=== PATIENT | female | born 1935 | race Caucasian/White ===

== ENCOUNTER 2019-10-10 09:21 | Emergency (ER) | payer OTHER ==
[~2019-10-10] VITALS: Ht 165.1 cm; Wt 72.6 kg
[~2019-10-10 09:21] MED LIST: ARICEPT10 M1 PO; CITALOPRAM40 MG PO; NYSTATIN OINTME30 GM T; NYSTATIN1 EAC3 MC; RISPERDAL0.5 MG PO; TRAZODONE50 MG PO; VITAMIN D32000 UNIT PO
[2019-10-10 10:07] LABS: BASO % 0.4 % (0.0-1.0); EOS # 0.2 10*3/uL (0.0-0.4); EOS % 2.8 % (1.0-4.0); HEMATOCRIT 35.2 % (37.0-47.0); LYMPH # 1.4 10*3/uL (1.3-4.4); MEAN CELL VOLUME 91.9 fl (81.0-99.0); MEAN CORPUSCULAR HGB 28.5 pg (27.0-31.0); MEAN PLATELET VOLUME 11.4 fl (9.6-12.3); MONO # 1.2 10*3/uL (0.1-1.0); MONO % 14.7 % (3.0-9.0); NEUT % 63.8 % (47.0-73.0); PLATELET COUNT AUTOMATED 165 10*3/uL (130-400); RED BLOOD COUNT 3.83 10*6/uL (4.10-5.10); WHITE BLOOD COUNT 7.8 10*3/uL (4.8-10.8)
[2019-10-10 10:22] LABS: ALBUMIN 2.7 gm/dl (3.1-4.5); ALKALINE PHOSPHATASE 82 U/L (45-117); BUN 24 mg/dl (7-24); CHLORIDE 107 mmol/L (98-107); CREATININE 1.02 mg/dL (0.55-1.02); POTASSIUM 4.5 mmol/L (3.5-5.1); SGOT/AST 16 IU/L (3-35); SGPT/ALT 16 U/L (12-78); SODIUM 138 mmol/L (136-145); TOTAL PROTEIN 6.8 gm/dL (6.4-8.2)
[2019-10-10 11:29] LABS: BACTERIA 4+; BILIRUBIN NEGATIVE (NEGATIVE); BLOOD 1+ (NEGATIVE); CLARITY CLOUDY (CLEAR); COLOR YELLOW (YELLOW); EPITHELIAL CELLS 21-30; GLUCOSE NEGATIVE (NEGATIVE); KETONE NEGATIVE (NEGATIVE); LEUKO ESTERASE 3+ (NEGATIVE); NITRITE NEGATIVE (NEGATIVE); UROBILINOGEN 0.2 E.U./dl (0.2-1.0); WBC TNTC wbc/hpf (0-5)
[2019-10-10] MEDS ORDERED: VIBRAMYCIN100 MG PO (11:36)
== END 2019-10-10 11:39 | disposition home or self-care (01) ==
LOC: ED 09:21
PROVIDERS: Nurse Practitioner Family
DX: L03.116 Cellulitis of left lower limb (principal); N39.0 Urinary tract infection, site not specified; K21.9 Gastro-esophageal reflux disease without esophagitis; I10 Essential (primary) hypertension; E11.9 Type 2 diabetes mellitus without complications; M81.0 Age-related osteoporosis without current pathological fracture; Z88.7 Allergy status to serum and vaccine; Z88.6 Allergy status to analgesic agent; Z88.8 Allergy status to other drugs, medicaments and biological substances; Z88.2 Allergy status to sulfonamides; Z79.899 Other long term (current) drug therapy

== ENCOUNTER 2020-04-06 15:57 | Inpatient (IN) | payer OTHER, MEDICAID ==
[~2020-04-06] VITALS: Ht 172.7 cm; Wt 81.2 kg
[~2020-04-06 15:57] MED LIST changes: +VIBRAMYCIN100 MG PO; -VITAMIN D32000 UNIT PO; +VITAMIN D350 MC2 PO
[2020-04-06 15:58] VITALS: BP 139/68
--- NOTE | 2020-04-06 16:27 | NUR ---
PT IS SLEEPING W/O DISTRESS, SAFTEY PRECAUTIONS IN PLACE.
--- NOTE | 2020-04-06 17:01 | NUR ---
DC O2 PER .
--- NOTE | 2020-04-06 17:23 | NUR ---
PT WITH LARGE ECCHYMOTIC AREA/HEMATOMA TO RT HAND/DIGITS AFTER BLOOD DRAWS NOTED @ THIS TIME.
[2020-04-06 17:35] VITALS: BP 138/68
[2020-04-06 17:41] LABS: HEMATOCRIT 38.2 % (37.0-47.0); MEAN CELL VOLUME 87.8 fl (81.0-99.0); MEAN CORPUSCULAR HGB 26.2 pg (27.0-31.0); MEAN CORPUSCULAR HGB CONC 29.8 g/dl (33.0-37.0); MEAN PLATELET VOLUME 11.1 fl (9.6-12.3); PLATELET COUNT AUTOMATED 150 10*3/uL (130-400); RED BLOOD COUNT 4.35 10*6/uL (4.10-5.10); RED CELL DISTRI WIDTH 16.2 % (0-14.5); WHITE BLOOD COUNT 7.9 10*3/uL (4.8-10.8)
[2020-04-06 17:46] LABS: BILIRUBIN Negative (Negative); BLOOD 1+ (Negative); CLARITY Cloudy (Clear); COLOR Yellow (Yellow); GLUCOSE Negative (Negative); KETONE Negative (Negative); LEUKO ESTERASE 2+ (Negative); NITRITE Negative (Negative); SPECIFIC GRAVITY 1.015 (1.001-1.030); UROBILINOGEN 0.2 E.U./dl (0.0-1.0)
[2020-04-06 17:57] LABS: ACT PARTIAL THROMBO TIME 31.6 SECONDS (20.0-32.1); INTERNATIONAL NORM RATIO 0.9 (2.0-3.5)
[2020-04-06 18:00] LABS: ALBUMIN 2.5 gm/dl (3.1-4.5); ALKALINE PHOSPHATASE 90 U/L (45-117); BUN 21 mg/dl (7-24); CHLORIDE 101 mmol/L (98-107); CPK 56 U/L (26-192); CREATININE 0.98 mg/dL (0.55-1.02); LDH 131 U/L (84-246); POTASSIUM 4.6 mmol/L (3.5-5.1); SGOT/AST 27 IU/L (3-35); SGPT/ALT 19 U/L (12-78); SODIUM 133 mmol/L (136-145); TOTAL PROTEIN 6.7 gm/dL (6.4-8.2); TROPONIN I < 0.015 ng/ml (<0.045)
[2020-04-06 18:05] LABS: BURR CELLS FEW; OVALOCYTES FEW; PLATELET SUFFICIENCY NORMAL (NORMAL); TOTAL CELLS COUNTED 100 #CELLS
[2020-04-06 18:07] LABS: BACTERIA 1+; WBC TNTC wbc/hpf (0-5)
--- NOTE | 2020-04-06 18:53 | NUR ---
UPDATED SON IN LOBBY.
--- NOTE | 2020-04-06 19:36 | NUR ---
DINORAH CALLED FROM [facility] AND PROVIDED REPORT @ THIS TIME.
[2020-04-06] MEDS ORDERED: MEMANTINE HCL10 MG PO (19:58)
[2020-04-06] MEDS ORDERED: VENT7GM INH (19:59)
[2020-04-06] MEDS ORDERED: VISTARIL50 MG PO (20:00)
[2020-04-06] MEDS ORDERED: AMMONIUM LACTA385 GM T (20:04)
[2020-04-06] MEDS ORDERED: FLEET ENEMA EX230 M1 R (20:08)
[2020-04-06] MEDS ORDERED: MILK OF MA400 MG/51 PO (20:10)
[2020-04-06] MEDS ORDERED: DULCOLAX10 M1 R (20:12)
[2020-04-06] MEDS ORDERED: THERAHONEY T (20:13)
[2020-04-06] MEDS ORDERED: IBUPROFEN400 MG PO (20:16)
--- NOTE | 2020-04-06 20:20 | NUR ---
PT'S SON MAMIE [phone] CALL WITH UPDATE AND ROOM ASSIGNMENT.
--- NOTE | 2020-04-06 21:00 | NUR ---
REPORT FROM [facility].
--- NOTE | 2020-04-06 21:30 | NUR ---
APPLIED 2L NC TO PATIENT. SATURATION AT 97% AT THIS TIME. PATIENT WAS SATING AT 90% ON RA.
[2020-04-06 21:43] VITALS: BP 130/83
--- NOTE | 2020-04-06 22:30 | NUR ---
PATIENT RESTING IN BED AT THIS TIME WITH NO COMPLAINTS. RR EASY AND NON-LABORED. CALL LIGHT WITHIN REACH. APPEARS TO BE NO IN DISTRESS AT THIS TIME.
[2020-04-07] VITALS: BP 134/57
--- NOTE | 2020-04-07 | NUR ---
A 84, admitted to 4E, under the services of FRANSISCO Wynn DO with a diagnosis of PUI COVID-19, ELEVATED D-DIMER, PULMONARY VASCULAR CONGESTION. Chief complaint is DYSPNEA. Patient arrived via stretcher from ER. Monitor applied. Initial assessment completed. Vital signs taken and recorded. FRANSISCO WYNN DO notified of admission to the unit. Orders received. See assessment for past medical history, medications and allergies. Patient and/or family oriented to unit. visitation policy reviewed. Clothing/patient valuable form completed. ELISABET GRAY A
[2020-04-07] MEDS ORDERED: LAC-HYDRIN FIV226 GM T (03:25)
[2020-04-07] MEDS ORDERED: GERI-HYDROLAC222 M1 T (03:26)
[2020-04-07 04:00] VITALS: BP 144/72
[2020-04-07 06:12] LABS: ALBUMIN 2.5 gm/dl (3.1-4.5); ALKALINE PHOSPHATASE 93 U/L (45-117); BUN 20 mg/dl (7-24); CHLORIDE 102 mmol/L (98-107); CREATININE 1.07 mg/dL (0.55-1.02); LDH 139 U/L (84-246); POTASSIUM 4.5 mmol/L (3.5-5.1); SGOT/AST 36 IU/L (3-35); SGPT/ALT 25 U/L (12-78); SODIUM 136 mmol/L (136-145); TOTAL PROTEIN 6.9 gm/dL (6.4-8.2)
[2020-04-07 06:13] LABS: BASO % 0.3 % (0.0-1.0); EOS # 0.1 10*3/uL (0.0-0.4); EOS % 1.3 % (1.0-4.0); FREE T4 1.35 ng/dl (0.76-1.46); HEMATOCRIT 38.1 % (37.0-47.0); LYMPH # 1.8 10*3/uL (1.3-4.4); LYMPH % 28.9 % (27.0-41.0); MEAN CELL VOLUME 85.8 fl (81.0-99.0); MEAN CORPUSCULAR HGB 26.6 pg (27.0-31.0); MEAN PLATELET VOLUME 11.1 fl (9.6-12.3); MONO # 1.2 10*3/uL (0.1-1.0); MONO % 18.6 % (3.0-9.0); NEUT # 3.2 10*3/uL (2.3-7.9); NEUT % 50.6 % (47.0-73.0); PLATELET COUNT AUTOMATED 147 10*3/uL (130-400); RED BLOOD COUNT 4.44 10*6/uL (4.10-5.10); TROPONIN I < 0.015 ng/ml (<0.045); WHITE BLOOD COUNT 6.4 10*3/uL (4.8-10.8)
--- NOTE | 2020-04-07 07:34 | NUR ---
DR. SHIN CONSULT COMPLETE.
[2020-04-07 08:00] VITALS: BP 139/81
--- NOTE | 2020-04-07 08:05 | NUR ---
DR. SHIN NOTIFIED OF CONSULT.
[2020-04-07 08:53] LABS: FERRITIN 579.5 ng/mL (10.0-291.0); VITAMIN D, 25-HYDROXY 68.9 ng/mL (30-100)
[2020-04-07 12:00] VITALS: BP 158/73
[2020-04-07 16:00] VITALS: BP 139/59
[2020-04-07 20:00] VITALS: BP 152/74
[2020-04-08] VITALS: BP 138/66
[2020-04-08 06:36] LABS: ALBUMIN 2.4 gm/dl (3.1-4.5); BUN 28 mg/dl (7-24); CHLORIDE 105 mmol/L (98-107); CREATININE 0.97 mg/dL (0.55-1.02); LDH 140 U/L (84-246); POTASSIUM 4.4 mmol/L (3.5-5.1); SGOT/AST 34 IU/L (3-35); SODIUM 137 mmol/L (136-145)
[2020-04-08 06:40] LABS: ALKALINE PHOSPHATASE 90 U/L (45-117); SGPT/ALT 26 U/L (12-78)
[2020-04-08 06:46] LABS: HEMATOCRIT 38.6 % (37.0-47.0); LYMPH # 0.7 10*3/uL (1.3-4.4); LYMPH % 16.2 % (27.0-41.0); MEAN CELL VOLUME 86.9 fl (81.0-99.0); MEAN CORPUSCULAR HGB 26.1 pg (27.0-31.0); MEAN CORPUSCULAR HGB CONC 30.1 g/dl (33.0-37.0); MEAN PLATELET VOLUME 11.4 fl (9.6-12.3); MONO # 0.4 10*3/uL (0.1-1.0); MONO % 10.5 % (3.0-9.0); NEUT # 2.9 10*3/uL (2.3-7.9); NEUT % 73.1 % (47.0-73.0); PLATELET COUNT AUTOMATED 164 10*3/uL (130-400); RED BLOOD COUNT 4.44 10*6/uL (4.10-5.10); RED CELL DISTRI WIDTH 15.6 % (0-14.5)
[2020-04-08 08:00] VITALS: BP 115/40
--- NOTE | 2020-04-08 08:55 | NUR ---
PATIENT IS LTC AT [facility]. PATIENT DOES NOT USE OXGYEN AT [facility]. WHEN MEDICALLY STABLE PATIENT CAN RETURN TO [facility].
[2020-04-08 12:00] VITALS: BP 140/45
--- NOTE | 2020-04-08 12:06 | NUR ---
DR SHIN NOTIFIED OF SOFA SCALE OF 7. PT CURRENTLY IN ROOM 4007 HAVING HEMODIALYSIS. PT CONTINUES ON BIPAP AT 16/ @ 60%.HD RN AT BEDSIDE.
[2020-04-08 16:00] VITALS: BP 132/45
--- NOTE | 2020-04-08 16:59 | NUR ---
Nursing screen received and chart reviewed. Patient admitted from LTC for pulmonary vascular congestion and elevated D-dimer. If patient has a decline in ADLs, transfers, or mobility past baseline, please consult OT. Thank you. Yoko Cortés OTR/L
--- NOTE | 2020-04-08 17:21 | NUR ---
PHYSICAL THERAPY Nursing screen received and chart reviewed. Patient admitted from LTC for pulmonary vascylar congestion and elevated D-Dimer. Recommend PT evaluation if decline in functional mobility presents. Thank you. Amrita Howe,PT,DPT
[2020-04-08 20:00] VITALS: BP 124/45
--- NOTE | 2020-04-08 21:15 | NUR ---
RESTING IN BED. ALERT TO NAME ONLY AT THIS TIME. REORIENTED. OXYGEN IN USE. NO C/O AT THIS TIME. TOLERATED ROUTINE MED WITH NO PROBLEM. CALL LIGHT IN REACH. SEE SHIFT ASSESSMENT. BED ALARM ON.
--- NOTE | 2020-04-08 22:45 | NUR ---
RESTING IN BED. OXYGEN IN USE. CALL LIGHT IN REACH. BED ALARM ON.
[2020-04-09] VITALS: BP 130/69
--- NOTE | 2020-04-09 00:10 | NUR ---
RESTING IN BED WITH EYES CLOSED. RESP-EASY AND REGULAR. OXYGEN IN USE. BED ALARM ON. CALL LIGHT IN REACH.
--- NOTE | 2020-04-09 05:15 | NUR ---
RESTING IN BED. TOLERATED ROUTINE MED WITH NO PROBLEM. NO C/O AT THIS TIME. CALL LIGHT IN REACH. BED ALARM ON.
[2020-04-09 06:32] LABS: HEMATOCRIT 37.2 % (37.0-47.0); LYMPH # 0.7 10*3/uL (1.3-4.4); LYMPH % 14.3 % (27.0-41.0); MEAN CELL VOLUME 84.9 fl (81.0-99.0); MEAN CORPUSCULAR HGB 25.8 pg (27.0-31.0); MEAN CORPUSCULAR HGB CONC 30.4 g/dl (33.0-37.0); MONO # 0.8 10*3/uL (0.1-1.0); MONO % 15.1 % (3.0-9.0); NEUT # 3.7 10*3/uL (2.3-7.9); NEUT % 70.4 % (47.0-73.0); PLATELET COUNT AUTOMATED 183 10*3/uL (130-400); RED BLOOD COUNT 4.38 10*6/uL (4.10-5.10); RED CELL DISTRI WIDTH 15.6 % (0-14.5); WHITE BLOOD COUNT 5.2 10*3/uL (4.8-10.8)
[2020-04-09 06:57] LABS: ALBUMIN 2.5 gm/dl (3.1-4.5); CREATININE 1.23 mg/dL (0.55-1.02); POTASSIUM 4.2 mmol/L (3.5-5.1); TOTAL PROTEIN 6.7 gm/dL (6.4-8.2)
--- NOTE | 2020-04-09 06:59 | NUR ---
DR. CLARK CALLED AWARE OF BLOOD CULTURES.
--- NOTE | 2020-04-09 07:39 | NUR ---
PATIENT IS [facility] AT [facility]. [employer]ORTS [employer]IC[employer] TRAINER FAXED CLINICAL UPDATES TO [facility].
[2020-04-09 08:00] VITALS: BP 132/88; BP 137/108
--- NOTE | 2020-04-09 11:41 | NUR ---
PT TRANSFERRED TO 531 AT THIS TIME D/T COVID TEST BEING NEGATIVE.
--- NOTE | 2020-04-09 11:48 | NUR ---
TOOK OVER CARE OF PT. PT RESTING IN BED. RESPIRATIONS EASY AND UNALBORED ON 1L NC. NO S/S OF DISTRESS NOTED. CALL LIGHT IN REACH.
[2020-04-09 14:00] VITALS: BP 139/77
[2020-04-09] MEDS ORDERED: NAFCILLIN2 GM IJ (14:46)
--- NOTE | 2020-04-09 14:49 | NUR ---
DR BERG CALLS THIS NURSE AND STATES THAT HE WOULD LIKE PICC LINE OR MIDLINE PLACED ON THIS PATIENT.
--- NOTE | 2020-04-09 15:02 | NUR ---
PHONE CONSENT OBTAINED FROM PT SON MAMIE RIVAS FOR PICC OR MIDLINE INSERTION. 2 RNS CONFIRMED CONSENT VIA PHONE.
--- NOTE | 2020-04-09 15:08 | NUR ---
PT SON HAS A LOT OF QUESTIONS. DR SINGH NOTIFIED AND STATES THAT HE WILL CALL PT SON.
--- NOTE | 2020-04-09 17:05 | NUR ---
PO DULCOLAX GIVEN TO PT AT THIS TIME DUE TO NO BOWEL MOVEMENT X3 DAYS. WILL MONITOR FOR EFFECTIVENESS.
[2020-04-09 20:00] VITALS: BP 139/95
[2020-04-09 20:37] VITALS: BP 139/95
[2020-04-10] VITALS: BP 135/65
[2020-04-10 06:41] LABS: BASO % 0.2 % (0.0-1.0); EOS % 0.5 % (1.0-4.0); HEMATOCRIT 36.5 % (37.0-47.0); LYMPH % 15.9 % (27.0-41.0); MEAN CELL VOLUME 87.1 fl (81.0-99.0); MEAN CORPUSCULAR HGB 26.3 pg (27.0-31.0); MEAN CORPUSCULAR HGB CONC 30.1 g/dl (33.0-37.0); MEAN PLATELET VOLUME 11.7 fl (9.6-12.3); MONO % 15.1 % (3.0-9.0); NEUT # 4.3 10*3/uL (2.3-7.9); NEUT % 67.8 % (47.0-73.0); PLATELET COUNT AUTOMATED 186 10*3/uL (130-400); RED BLOOD COUNT 4.19 10*6/uL (4.10-5.10); RED CELL DISTRI WIDTH 15.9 % (0-14.5); WHITE BLOOD COUNT 6.4 10*3/uL (4.8-10.8)
[2020-04-10 06:56] LABS: ALBUMIN 2.7 gm/dl (3.1-4.5); CREATININE 1.53 mg/dL (0.55-1.02); POTASSIUM 3.7 mmol/L (3.5-5.1); TOTAL PROTEIN 6.8 gm/dL (6.4-8.2)
[2020-04-10 08:54] VITALS: BP 148/72
[2020-04-10 09:13] VITALS: BP 140/88
--- NOTE | 2020-04-10 09:13 | NUR ---
PT EATING BREAKFAST. RESPIRATIONS EASY AND UNLABORED ON 1L NC. NO DISTRESS NOTED .NO COMPLAINTS VOICED. CALL LIGHT IN REACH.
--- NOTE | 2020-04-10 10:05 | NUR ---
PT OFF OF FLOOR FOR PICC LINE PLACEMENT.
[2020-04-10 12:00] VITALS: BP 116/71
--- NOTE | 2020-04-10 12:22 | NUR ---
DR. MONTALVO NOTIFIED OF PICC IN R [facility] AND NEEDING PULLED BACK
--- NOTE | 2020-04-10 12:29 | NUR ---
SURGERY NOTIFIED OF PICC NEEDING PULLED BACK
--- NOTE | 2020-04-10 14:06 | NUR ---
DR GAITAN NOTIFIED THAT PT HAS HAD ECHO AND THAT IT NEEDS READ. PHYSICIAN STATES THAT HE WILL READ ECHO.
[2020-04-10 16:00] VITALS: BP 115/58
--- NOTE | 2020-04-10 16:35 | NUR ---
Discharge instructions reviewed with patient/family. Patient receptive and verbalizes understanding. Follow-up care arranged. Written instructions given to patient/family. MOON LYONS
--- NOTE | 2020-04-10 16:35 | NUR ---
PT SON CALLED IN FOR UPDATES. UPDATED PT SON AT THIS TIME.
--- NOTE | 2020-04-10 19:27 | NUR ---
[facility] HERE TO FIELD [employer] FIRE CONTROL MAN PATIENT TO TAKE HER TO [facility].
[2020-04-23] MEDS ORDERED: NAFCILLIN2 GM IV (02:00)
== END 2020-04-10 20:46 | DRG 189 ==
LOC: ED 15:57 → 5E 21:30 → 4E 21:30 → EDHOLD 21:30 → 4E 22:53 → 5E 04-09 11:33
PROVIDERS: Emergency Medicine; Student in an Organized Health Care Education/Training Program; ADMIT Family Medicine; ATTEND Family Medicine
PROC: 02H633Z Insertion of Infusion Device into Right Atrium, Percutaneous Approach (ICD-10-PCS; principal; 2020-04-07)
DX: J96.01 Acute respiratory failure with hypoxia (principal); E43 Unspecified severe protein-calorie malnutrition; N30.01 Acute cystitis with hematuria; E87.1 Hypo-osmolality and hyponatremia; Z20.828 Contact with and (suspected) exposure to other viral communicable diseases; L40.9 Psoriasis, unspecified; E83.41 Hypermagnesemia; E11.22 Type 2 diabetes mellitus with diabetic chronic kidney disease; D64.9 Anemia, unspecified; N18.31 Chronic kidney disease, stage 3a; K21.9 Gastro-esophageal reflux disease without esophagitis; I12.9 Hypertensive chronic kidney disease with stage 1 through stage 4 chronic kidney disease, or unspecified chronic kidney disease; M19.90 Unspecified osteoarthritis, unspecified site; E78.5 Hyperlipidemia, unspecified; F03.90 Unspecified dementia, unspecified severity, without behavioral disturbance, psychotic disturbance, mood disturbance, and anxiety; F32.5 Major depressive disorder, single episode, in full remission; E66.9 Obesity, unspecified; Z88.5 Allergy status to narcotic agent; Z88.2 Allergy status to sulfonamides; Z88.7 Allergy status to serum and vaccine; Z88.8 Allergy status to other drugs, medicaments and biological substances; Z90.49 Acquired absence of other specified parts of digestive tract; Z90.710 Acquired absence of both cervix and uterus; Z68.27 Body mass index [BMI] 27.0-27.9, adult

== ENCOUNTER 2020-04-27 20:03 | Inpatient (IN) | payer OTHER, MEDICAID ==
[~2020-04-27] VITALS: Ht 172.7 cm; Wt 81.6 kg
[~2020-04-27 20:03] MED LIST changes: +AMMONIUM LACTA385 GM T; +DULCOLAX10 M1 R; +FLEET ENEMA EX230 M1 R; +GERI-HYDROLAC222 M1 T; +IBUPROFEN400 MG PO; +LAC-HYDRIN FIV226 GM T; +MEMANTINE HCL10 MG PO; +MILK OF MA400 MG/51 PO; +NAFCILLIN2 GM IJ; +NAFCILLIN2 GM IV; +THERAHONEY T; +VENT7GM INH; +VISTARIL50 MG PO
[2020-04-27 20:28] LABS: HEMATOCRIT 33.6 % (37.0-47.0); MEAN CELL VOLUME 83.4 fl (81.0-99.0); MEAN CORPUSCULAR HGB 25.6 pg (27.0-31.0); MEAN CORPUSCULAR HGB CONC 30.7 g/dl (33.0-37.0); MEAN PLATELET VOLUME 11.1 fl (9.6-12.3); PLATELET COUNT AUTOMATED 241 10*3/uL (130-400); RED BLOOD COUNT 4.03 10*6/uL (4.10-5.10); RED CELL DISTRI WIDTH 18.1 % (0-14.5); WHITE BLOOD COUNT 13.8 10*3/uL (4.8-10.8)
[2020-04-27 20:40] VITALS: BP 150/70
[2020-04-27 20:42] LABS: ALBUMIN 1.6 gm/dl (3.1-4.5); TOTAL PROTEIN 6.7 gm/dL (6.4-8.2)
[2020-04-27 20:45] LABS: POTASSIUM 2.1 mmol/L (3.5-5.1)
[2020-04-27 20:47] LABS: BASOPHILS 2 % (0-1); TOTAL CELLS COUNTED 100 #CELLS
[2020-04-27 20:48] LABS: MICROCYTOSIS SLIGHT
[2020-04-27 20:50] LABS: BURR CELLS MODERATE; OVALOCYTES FEW; PLATELET SUFFICIENCY NORMAL (NORMAL)
[2020-04-27 21:43] VITALS: BP 153/72
[2020-04-27 22:09] VITALS: BP 131/76
[2020-04-27 23:25] LABS: ABG BASE EXCESS -1.2 mmol/L (-2.0-2.0); ARTERIAL BLOOD GAS PH 7.261 (7.35-7.45)
[2020-04-28] VITALS (10 sets, daily range): BP systolic 103–156; BP diastolic 46–94
[2020-04-28 01:00] LABS: CREATININE 1.97 mg/dL (0.55-1.02); POTASSIUM 2.5 mmol/L (3.5-5.1)
[2020-04-28] MEDS ORDERED: FLEET ENEMA 13133 ML R (01:54)
[2020-04-28] MEDS ORDERED: IMODIUM A-D2 M2 PO (01:56)
[2020-04-28 05:44] LABS: ALBUMIN 1.6 gm/dl (3.1-4.5); CREATININE 2.03 mg/dL (0.55-1.02); TOTAL PROTEIN 6.3 gm/dL (6.4-8.2)
[2020-04-28 06:11] LABS: BASO # 0.1 10*3/uL (0.0-0.1); BASO % 0.3 % (0.0-1.0); EOS % 0.1 % (1.0-4.0); HEMATOCRIT 30.6 % (37.0-47.0); LYMPH # 0.9 10*3/uL (1.3-4.4); LYMPH % 5.5 % (27.0-41.0); MEAN CELL VOLUME 80.7 fl (81.0-99.0); MEAN CORPUSCULAR HGB 25.6 pg (27.0-31.0); MEAN CORPUSCULAR HGB CONC 31.7 g/dl (33.0-37.0); MEAN PLATELET VOLUME 11.5 fl (9.6-12.3); MONO # 1.2 10*3/uL (0.1-1.0); MONO % 7.5 % (3.0-9.0); NEUT % 85.1 % (47.0-73.0); PLATELET COUNT AUTOMATED 230 10*3/uL (130-400); RED BLOOD COUNT 3.79 10*6/uL (4.10-5.10); RED CELL DISTRI WIDTH 17.7 % (0-14.5); WHITE BLOOD COUNT 16.5 10*3/uL (4.8-10.8)
[2020-04-28 06:22] LABS: ACT PARTIAL THROMBO TIME 32.5 SECONDS (20.0-32.1); INTERNATIONAL NORM RATIO 1.1 (2.0-3.5)
[2020-04-28 07:29] LABS: VITAMIN D, 25-HYDROXY 48.8 ng/mL (30-100)
[2020-04-28 07:51] LABS: FERRITIN 1651.8 ng/mL (10.0-291.0)
[2020-04-28 09:38] LABS: ABG BASE EXCESS -0.8 mmol/L (-2.0-2.0); ARTERIAL BLOOD GAS PH 7.304 (7.35-7.45)
[2020-04-29] VITALS (15 sets, daily range): BP systolic 113–152; BP diastolic 41–90
[2020-04-29 05:32] LABS: ALBUMIN 1.5 gm/dl (3.1-4.5); CREATININE 2.13 mg/dL (0.55-1.02); TOTAL PROTEIN 6.2 gm/dL (6.4-8.2)
[2020-04-29 06:00] LABS: POTASSIUM 4.7 mmol/L (3.5-5.1)
[2020-04-29 06:30] LABS: HEMATOCRIT 28.2 % (37.0-47.0); MEAN CORPUSCULAR HGB 25.9 pg (27.0-31.0); MEAN CORPUSCULAR HGB CONC 31.9 g/dl (33.0-37.0); MEAN PLATELET VOLUME 11.4 fl (9.6-12.3); PLATELET COUNT AUTOMATED 205 10*3/uL (130-400); RED BLOOD COUNT 3.48 10*6/uL (4.10-5.10); RED CELL DISTRI WIDTH 18.7 % (0-14.5); WHITE BLOOD COUNT 23.2 10*3/uL (4.8-10.8)
[2020-04-29 07:20] LABS: BURR CELLS MODERATE; OVALOCYTES FEW; PLATELET SUFFICIENCY NORMAL (NORMAL); POLYCHROMASIA SLIGHT; SCHISTOCYTES FEW; TOTAL CELLS COUNTED 100 #CELLS
[2020-04-30 00:29] VITALS: BP 100/76
[2020-04-30 04:36] VITALS: BP 102/69
[2020-04-30 05:56] LABS: ALBUMIN 1.4 gm/dl (3.1-4.5); CREATININE 2.86 mg/dL (0.55-1.02); POTASSIUM 4.5 mmol/L (3.5-5.1); TOTAL PROTEIN 5.9 gm/dL (6.4-8.2)
[2020-04-30 06:00] LABS: HEMATOCRIT 26.8 % (37.0-47.0); MEAN CELL VOLUME 80.7 fl (81.0-99.0); MEAN PLATELET VOLUME 11.1 fl (9.6-12.3); NUCLEATED RED BLOOD CELL 0.2 % (0.0-0.0); PLATELET COUNT AUTOMATED 223 10*3/uL (130-400); RED BLOOD COUNT 3.32 10*6/uL (4.10-5.10); RED CELL DISTRI WIDTH 18.8 % (0-14.5); WHITE BLOOD COUNT 19.1 10*3/uL (4.8-10.8)
[2020-04-30 06:17] LABS: ACT PARTIAL THROMBO TIME 34.7 SECONDS (20.0-32.1)
[2020-04-30 06:46] LABS: PLATELET SUFFICIENCY NORMAL (NORMAL); TOTAL CELLS COUNTED 100 #CELLS
[2020-04-30 08:05] VITALS: BP 108/61
[2020-04-30 12:09] VITALS: BP 126/82
== END 2020-04-30 17:34 | disposition expired | DRG 871 ==
LOC: ED 20:03 → EDHOLD 21:22 → 4E 04-30 13:43
PROVIDERS: Internal Medicine; Internal Medicine Critical Care Medicine; ADMIT Family Medicine; ATTEND Family Medicine
PROC: 5A09457 Assistance with Respiratory Ventilation, 24-96 Consecutive Hours, Continuous Positive Airway Pressure (ICD-10-PCS; principal; 2020-04-28)
DX: A41.9 Sepsis, unspecified organism (principal); J96.01 Acute respiratory failure with hypoxia; E43 Unspecified severe protein-calorie malnutrition; J18.9 Pneumonia, unspecified organism; N17.9 Acute kidney failure, unspecified; D68.59 Other primary thrombophilia; E87.6 Hypokalemia; E11.65 Type 2 diabetes mellitus with hyperglycemia; K21.9 Gastro-esophageal reflux disease without esophagitis; F32.9 Major depressive disorder, single episode, unspecified; L40.9 Psoriasis, unspecified; F03.90 Unspecified dementia, unspecified severity, without behavioral disturbance, psychotic disturbance, mood disturbance, and anxiety; D64.9 Anemia, unspecified; E88.09 Other disorders of plasma-protein metabolism, not elsewhere classified; N18.30 Chronic kidney disease, stage 3 unspecified; M19.90 Unspecified osteoarthritis, unspecified site; E78.5 Hyperlipidemia, unspecified; R74.01 Elevation of levels of liver transaminase levels; E80.6 Other disorders of bilirubin metabolism; E11.22 Type 2 diabetes mellitus with diabetic chronic kidney disease; S31.109A Unspecified open wound of abdominal wall, unspecified quadrant without penetration into peritoneal cavity, initial encounter; S71.002A Unspecified open wound, left hip, initial encounter; S31.103A Unspecified open wound of abdominal wall, right lower quadrant without penetration into peritoneal cavity, initial encounter; Z66 Do not resuscitate; Z51.5 Encounter for palliative care; I12.9 Hypertensive chronic kidney disease with stage 1 through stage 4 chronic kidney disease, or unspecified chronic kidney disease; Z88.6 Allergy status to analgesic agent; Z88.2 Allergy status to sulfonamides; Z88.7 Allergy status to serum and vaccine; Z88.8 Allergy status to other drugs, medicaments and biological substances; Z90.710 Acquired absence of both cervix and uterus; Z90.49 Acquired absence of other specified parts of digestive tract; Z87.81 Personal history of (healed) traumatic fracture; X58.XXXA Exposure to other specified factors, initial encounter; Y93.89 Activity, other specified; Y92.89 Other specified places as the place of occurrence of the external cause; Y99.8 Other external cause status; Z68.26 Body mass index [BMI] 26.0-26.9, adult